=== PATIENT | female | born 1990 | race Caucasian/White ===

== ENCOUNTER → 2020-08-15 | Outpatient (CLI) | payer OTHER ==
--- NOTE | 2020-08-16 09:40 | NM ---
EXAM DESCRIPTION: Hepatobiliar w/CCK: Nuclear Medicine. CLINICAL HISTORY: BILIARY DYSKINESIA COMPARISON: None. TECHNIQUE: Patient was given 8.3 mCi of technetium 99 M mebrofenin (Choletec) radiopharmaceutical IV. Anterior gamma camera images were obtained of the right upper quadrant at 1 minute intervals for 1 hour . The patient was then given 1.1 mcg CCK IV infusion over 30-minute interval. Gallbladder ejection fraction was evaluated by measuring change in radioactivity in the gallbladder, over 30 min interval. FINDINGS: Administration of radiopharmaceutical IV, almost instantaneous visualization of the entire liver parenchyma. No focal areas of increased or decreased activity. Almost immediately visualization of activity in the intrahepatic system followed by timely visualization of activity in the extrahepatic ducts. Initial gallbladder activity was not seen until 16 minutes after injection. After administration of CCK, there were no symptoms reproduced. Activity is decreased in the gallbladder 4% at 10 minutes, 20% at 20 minutes, and 16% at 30 minutes after administration. IMPRESSION: 1. No intrahepatic or extrahepatic biliary tract obstruction. 2. Gallbladder ejection fraction was 20 percent at 20 minutes which is well below normal range. This can indicate chronic cholecystitis, cholelithiasis, or gallbladder dyskinesia. Consider follow-up gallbladder ultrasound if not recently performed. Electronically signed by: Chad Nowak MD 08/16/2020 9:38 AM [employer]
== END ==
LOC: NM 08:40
PROVIDERS: ATTEND Surgery
DX: K82.8 Other specified diseases of gallbladder (principal)
CPT/HCPCS: 78227; A9537